=== PATIENT | male | born 1975 | race Caucasian/White ===

== ENCOUNTER → 2017-02-26 | Outpatient (CLI) | payer OTHER ==
[2016-07-17 16:12] VITALS: BP 126/74
[~2017-02-26] MED LIST: CARAFATE1 G1 PO; CIPRO250 M1 PO; FLAGYL500 M1 PO; FLEXERIL 1010 MG/TAB PO; FLOMAX PO; KLONOPIN0.5 M1 PO; NORCO 325 MG-51 TA1 PO; OXYCONTIN10 M1 PO; PERCOCET 325 MG1 TA2 PO; PROTONIX TR40 M1 PO; ZOLOFT 100MG100 MG PO
== END ==
LOC: LAB 11:24
DX: K86.1 Other chronic pancreatitis (principal); N20.0 Calculus of kidney

== ENCOUNTER 2017-08-06 11:54 | Emergency (ER) | payer OTHER ==
[~2017-08-06] VITALS: Ht 162.6 cm; Wt 65.9 kg
[2017-08-06] MEDS ORDERED: PERCOCET 2.5-31 EACH PO (13:20)
[2017-08-06] MEDS ORDERED: PERCOCET 325 MG1 TA2 PO (13:58)
[2017-08-06] MEDS ORDERED: LYRICA75 MG PO (13:59)
[2017-08-06] MEDS ORDERED: ZOLOFT 100MG100 MG PO (14:00)
[2017-08-06] MEDS ORDERED: LIDODERM1 EACH TP (14:01)
[2017-08-06 14:27] VITALS: BP 130/72
== END 2017-08-06 14:30 | disposition home or self-care (01) ==
LOC: ED 11:54
DX: K59.00 Constipation, unspecified (principal); Z79.891 Long term (current) use of opiate analgesic; M54.9 Dorsalgia, unspecified; G89.29 Other chronic pain; R63.0 Anorexia; Z87.442 Personal history of urinary calculi
CPT/HCPCS: J2405; J3010; J7120; Q9967

== ENCOUNTER 2018-10-04 19:46 | Emergency (ER) | payer OTHER ==
[~2018-10-04] VITALS: Ht 162.6 cm; Wt 63.6 kg
[~2018-10-04 19:46] MED LIST changes: +LIDODERM1 EACH TP; +LYRICA75 MG PO; +PERCOCET 2.5-31 EACH PO
[2018-10-04] MEDS ORDERED: TESSALON PERLE100 M1 PO (20:19)
[2018-10-04] MEDS ORDERED: VALTREX1 GM PO (20:19)
[2018-10-04] MEDS ORDERED: RT ALBUTEROL CC18 GM IH (20:19)
[2018-10-04] MEDS ORDERED: VIRTUSSIN A/C118 ML PO (20:21)
[2018-10-04 20:28] LABS: ALBUMIN 4.6 g/dL (3.5-5.0); POTASSIUM 3.9 mmol/L (3.6-5.0); TOTAL BILIRUBIN 0.4 mg/dL (0.2-1.3); TOTAL PROTEIN 6.8 g/dL (6.3-8.2)
[2018-10-04 20:30] LABS: EOS # 0.3 (0.04-0.40); EOS % 2.8 % (0.0-4.0); HEMATOCRIT 43.4 % (42.0-52.0); HEMOGLOBIN 15.4 g/dL (13.5-18.0); LYMPH# 2.8 (1.50-4.00); MEAN CELL VOLUME 85 fl (78-100); MEAN CORPUSCULAR HEMOGLOBIN 30 pg (27-31); MEAN CORPUSCULAR HGB CONC 36 g/dL (33-37); MEAN PLATELET VOLUME 9.2 fl (7.4-10.4); MONO # 0.8 (0.20-0.80); PLATELET COUNT 387 K/mm3 (130-400); RED BLOOD COUNT 5.09 M/mm3 (4.20-5.60); RED CELL DISTRIBUTION WIDTH 12.7 % (11.5-14.5)
[2018-10-04 20:46] LABS: CALCIUM 9.8 mg/dL (8.4-10.2)
[2018-10-04 20:59] LABS: URINE WBC 0 /hpf (0-3)
[2018-10-04 21:07] LABS: URINE APPEARANCE CLEAR; URINE BILIRUBIN NEGATIVE (NEGATIVE); URINE BLOOD NEGATIVE (NEGATIVE); URINE COLOR YELLOW; URINE GLUCOSE NEGATIVE (NEGATIVE); URINE KETONE NEGATIVE (NEGATIVE); URINE LEUKOCYTE ESTERASE NEGATIVE (NEGATIVE); URINE NITRATE NEGATIVE (NEGATIVE); URINE PROTEIN(semi-quant) NEGATIVE (NEGATIVE); URINE UROBILINOGEN NORMAL (NORMAL)
[2018-10-04] MEDS ORDERED: MORGIDOX 1X100100 MG PO (21:21)
[2018-10-04] MEDS ORDERED: NEURONTIN300 MG/CAP PO (22:29)
[2018-10-04 22:33] VITALS: BP 130/75
== END 2018-10-04 22:33 | disposition home or self-care (01) ==
LOC: ED 19:46
PROVIDERS: Nurse Practitioner Family
DX: B02.9 Zoster without complications (principal); J20.9 Acute bronchitis, unspecified; F17.200 Nicotine dependence, unspecified, uncomplicated; J42 Unspecified chronic bronchitis; F43.10 Post-traumatic stress disorder, unspecified; Z87.820 Personal history of traumatic brain injury; Z87.19 Personal history of other diseases of the digestive system; Z79.899 Other long term (current) drug therapy
CPT/HCPCS: J2270

== ENCOUNTER → 2021-02-11 | Outpatient (CLI) | payer OTHER ==
[~2021-02-11] MED LIST changes: +MORGIDOX 1X100100 MG PO; +NEURONTIN300 MG/CAP PO; +RT ALBUTEROL CC18 GM IH; +TESSALON PERLE100 M1 PO; +VALTREX1 GM PO; +VIRTUSSIN A/C118 ML PO
== END ==
LOC: RAD 06:56
DX: M50.223 Other cervical disc displacement at C6-C7 level (principal); M54.12 Radiculopathy, cervical region